=== PATIENT | female | born 1955 ===

== ENCOUNTER 2022-04-18 11:12 | Emergency (ER) | payer BC ==
[~2022-04-18] VITALS: Ht 157.5 cm; Wt 54.4 kg
[~2022-04-18 11:12] MED LIST: ACET325 PO; Estrace Vagin42.5 GM VAG; HYDACE5; HYDCHL25 PO; LEVSOD50 PO; LEVSOD75 PO; LISHYD1012 PO; LISI5 PO; METPHE10 PO; OXYACE5T PO; RXOXYACE PO
== END 2022-04-18 13:26 | disposition home or self-care (01) ==
LOC: ER 11:12
DX: S93.601A Unspecified sprain of right foot, initial encounter (principal); E03.9 Hypothyroidism, unspecified; F98.8 Other specified behavioral and emotional disorders with onset usually occurring in childhood and adolescence; X50.1XXA Overexertion from prolonged static or awkward postures, initial encounter; Z79.899 Other long term (current) drug therapy; Z88.5 Allergy status to narcotic agent
CPT/HCPCS: 73630